=== PATIENT | female | born 1955 | race Asian ===

== ENCOUNTER 2017-03-17 10:25 | Outpatient (CLI) | payer OTHER ==
[~2017-03-17 10:25] MED LIST: AMLO2.5T PO; EDLUAR10 MG PO; FOLI1TAB26 PO; HYZAAR1 TA1 PO; METHO2.5 PO; PREDNISONE5 MG PO; TRAM50TA PO
== END 2017-03-17 11:30 | disposition home or self-care (01) ==
LOC: RAD 10:25
DX: M85.89 Other specified disorders of bone density and structure, multiple sites (principal); M05.89 Other rheumatoid arthritis with rheumatoid factor of multiple sites; K13.0 Diseases of lips; M19.041 Primary osteoarthritis, right hand; M19.042 Primary osteoarthritis, left hand; M19.071 Primary osteoarthritis, right ankle and foot

== ENCOUNTER 2017-06-08 10:14 | Outpatient (CLI) | payer OTHER | END 2017-06-08 11:15 | disposition home or self-care (01) | LOC: MAMMO 10:14 | DX: Z12.31 Encounter for screening mammogram for malignant neoplasm of breast (principal) ==

== ENCOUNTER 2017-08-19 10:08 | Outpatient (CLI) | payer OTHER | END 2017-08-19 19:34 | disposition home or self-care (01) | LOC: RESP 10:08 | DX: R06.02 Shortness of breath (principal) | CPT/HCPCS: 94640; 94664 ==

== ENCOUNTER 2018-06-11 14:10 | Outpatient (CLI) | payer OTHER | END 2018-06-11 22:20 | disposition home or self-care (01) | LOC: MAMMO 14:10 | DX: M05.89 Other rheumatoid arthritis with rheumatoid factor of multiple sites (principal); R06.00 Dyspnea, unspecified; Z12.31 Encounter for screening mammogram for malignant neoplasm of breast ==

== ENCOUNTER 2019-01-10 22:10 | Inpatient (IN) | payer OTHER ==
[~2019-01-10] VITALS: Ht 165.1 cm; Wt 88.5 kg
[2019-01-10 22:14] VITALS: BP 165/88; TEMP 98.1
[2019-01-10 22:39] VITALS: BP 155/78
[2019-01-10 22:55] VITALS: BP 132/73
[2019-01-10 23:30] VITALS: BP 135/77
[2019-01-10 23:40] LABS: POTASSIUM 3.5 mmol/L (3.6-5.2); SODIUM 134 mmol/L (136-145)
[2019-01-10 23:42] LABS: PLATELET COUNT 396 K/uL (152-353)
[2019-01-11] VITALS (9 sets, daily range): BP systolic 128–167; BP diastolic 76–90; TEMP 97.5–98.5; Ht 165.1 cm; Wt 88.5 kg
[2019-01-11] MEDS ORDERED: ATEN25TA21 PO (00:52)
[2019-01-11] MEDS ORDERED: NORCO 10/325***1 TAB PO (00:52)
[2019-01-11] MEDS ORDERED: ORENCIA50 MG/0.4 SC (00:54)
[2019-01-11] MEDS ORDERED: OTREXUP20 MG/0.4 SC (00:57)
[2019-01-11] MEDS ORDERED: ALBU90AE13 INH (00:58)
[2019-01-11] MEDS ORDERED: LANTUS100 UNIT/M SC (10:27)
[2019-01-11] MEDS ORDERED: JANUMET1 TAB PO (10:31)
[2019-01-11 14:12] LABS: POTASSIUM 4.1 mmol/L (3.6-5.2)
[2019-01-11 14:49] LABS: PLATELET COUNT 386 K/uL (152-353)
[2019-01-12] VITALS: BP 149/82; TEMP 98.2
[2019-01-12 03:56] VITALS: BP 133/77; TEMP 98.2
[2019-01-12 05:32] LABS: PLATELET COUNT 356 K/uL (152-353)
[2019-01-12 05:51] LABS: POTASSIUM 3.9 mmol/L (3.6-5.2)
[2019-01-12 08:00] VITALS: BP 155/82; TEMP 98.3
[2019-01-12 12:00] VITALS: BP 141/77; TEMP 98.3
[2019-01-12 16:00] VITALS: BP 143/81; TEMP 98.4
[2019-01-12 19:51] VITALS: BP 152/82; TEMP 98.5
[2019-01-13] VITALS: BP 140/67; TEMP 98.6
[2019-01-13 04:00] VITALS: BP 148/77; TEMP 98.4
[2019-01-13 06:22] LABS: PLATELET COUNT 344 K/uL (152-353)
[2019-01-13 06:41] LABS: POTASSIUM 4.4 mmol/L (3.6-5.2)
[2019-01-13 08:00] VITALS: BP 157/86; TEMP 98.6
[2019-01-13] MEDS ORDERED: ALBUTEROL0.083 % INH (10:23)
[2019-01-13] MEDS ORDERED: NEBULIZE1 INH (10:25)
[2019-01-13] MEDS ORDERED: MEDROL DOSEPAK4 MG PO (10:26)
[2019-01-13] MEDS ORDERED: MUCINEX600 MG PO (10:27)
== END 2019-01-13 11:08 | disposition home or self-care (01) | DRG 202 ==
LOC: ED 22:10 → MED/SURG 01-11 01:00
PROVIDERS: Family Medicine; ADMIT Emergency Medicine
DX: J45.901 Unspecified asthma with (acute) exacerbation (principal); E87.1 Hypo-osmolality and hyponatremia; D52.8 Other folate deficiency anemias; I10 Essential (primary) hypertension; E87.6 Hypokalemia; E11.9 Type 2 diabetes mellitus without complications; E83.42 Hypomagnesemia; G47.09 Other insomnia
CPT/HCPCS: 36415; 80053; 82550; 82948; 83735; 84484; 85027; 85379; 94640; 94644; 94645; 94664; 94760; 96365; 96366; 96372; 99284; J1650; J1815; J2930; J3475; J3490; J7040

== ENCOUNTER → 2019-02-28 | Emergency (ER) | payer OTHER ==
[~2019-02-28] MED LIST changes: +ALBU90AE13 INH; +ALBUTEROL0.083 % INH; +ATEN25TA21 PO; +JANUMET1 TAB PO; +LANTUS100 UNIT/M SC; +MEDROL DOSEPAK4 MG PO; +MUCINEX600 MG PO; +NEBULIZE1 INH; +NORCO 10/325***1 TAB PO; +ORENCIA50 MG/0.4 SC; +OTREXUP20 MG/0.4 SC
== END ==
LOC: ED 20:43
DX: H92.01 Otalgia, right ear (principal)

== ENCOUNTER 2019-06-06 12:45 | Outpatient (CLI) | payer OTHER | END 2019-06-06 20:14 | disposition home or self-care (01) | LOC: LABW 12:45 | DX: D33.3 Benign neoplasm of cranial nerves (principal) | CPT/HCPCS: 36415; 82565; 84520 ==

== ENCOUNTER 2019-08-11 10:57 | Outpatient (CLI) | payer OTHER | END 2019-08-11 19:14 | disposition home or self-care (01) | LOC: RAD 10:57 | DX: M05.89 Other rheumatoid arthritis with rheumatoid factor of multiple sites (principal); M19.041 Primary osteoarthritis, right hand; M19.042 Primary osteoarthritis, left hand; M19.071 Primary osteoarthritis, right ankle and foot; M19.072 Primary osteoarthritis, left ankle and foot ==

== ENCOUNTER 2019-08-23 09:33 | Outpatient (CLI) | payer OTHER | END 2019-08-23 20:18 | disposition home or self-care (01) | LOC: MAMMO 09:33 | DX: Z12.31 Encounter for screening mammogram for malignant neoplasm of breast (principal) ==

== ENCOUNTER 2020-02-15 11:11 | Outpatient (CLI) | payer OTHER | END 2020-02-15 20:06 | disposition home or self-care (01) | LOC: RAD 11:11 | DX: M79.641 Pain in right hand (principal); M79.672 Pain in left foot ==

== ENCOUNTER 2020-07-09 09:58 | Outpatient (CLI) | payer OTHER | END 2020-07-09 22:28 | disposition home or self-care (01) | LOC: MRI 09:58 | DX: M05.89 Other rheumatoid arthritis with rheumatoid factor of multiple sites (principal); M19.041 Primary osteoarthritis, right hand; M19.042 Primary osteoarthritis, left hand; M19.071 Primary osteoarthritis, right ankle and foot; M19.072 Primary osteoarthritis, left ankle and foot; Z79.899 Other long term (current) drug therapy ==

== ENCOUNTER 2021-01-17 13:13 | Outpatient (CLI) | payer OTHER | END 2021-01-17 20:37 | disposition home or self-care (01) | LOC: MRI 13:13 | PROVIDERS: ATTEND Nurse Practitioner Family | DX: M05.79 Rheumatoid arthritis with rheumatoid factor of multiple sites without organ or systems involvement (principal) ==

== ENCOUNTER 2021-02-26 08:16 | Outpatient (CLI) | payer OTHER | END 2021-02-26 22:39 | disposition home or self-care (01) | LOC: MRI 08:16 | PROVIDERS: ATTEND Nurse Practitioner Family | DX: M05.79 Rheumatoid arthritis with rheumatoid factor of multiple sites without organ or systems involvement (principal) | CPT/HCPCS: A9576 ==

== ENCOUNTER 2022-11-03 17:24 | Observation (INO) | payer OTHER ==
[~2022-11-03] VITALS: Ht 167.6 cm; Wt 96.7 kg
[2022-11-03 18:40] VITALS: BP 175/82; TEMP 98; Ht 167.6 cm; Wt 96.7 kg
[2022-11-03 19:38] VITALS: BP 168/85; TEMP 97.7
[2022-11-03 21:30] LABS: PLATELET COUNT 408 K/uL (152-353)
[2022-11-03 21:31] LABS: POTASSIUM 3.7 mmol/L (3.6-5.2)
[2022-11-03 23:36] VITALS: BP 167/73; TEMP 98.1
[2022-11-04 03:31] VITALS: BP 152/77; TEMP 98.1
[2022-11-04 08:00] VITALS: BP 153/85; TEMP 97.9
[2022-11-04 12:00] VITALS: BP 143/80; TEMP 97.5
== END 2022-11-04 16:35 | disposition home health service (06) ==
LOC: MED/SURG 17:24
PROVIDERS: ADMIT Internal Medicine; ATTEND Internal Medicine
DX: E11.621 Type 2 diabetes mellitus with foot ulcer (principal); R60.0 Localized edema; M06.8A Other specified rheumatoid arthritis, other specified site; I10 Essential (primary) hypertension
CPT/HCPCS: 80053; 82948; 83880; 85027; 87635; 96365; 96367; 96372; 96374; 96375; 96376; 99220; G0378; G0379; J0360; J1650; J1940; J3490; U0003

== ENCOUNTER 2022-12-24 15:46 | Outpatient (CLI) | payer OTHER | END 2022-12-24 18:00 | disposition home or self-care (01) | LOC: RAD 15:46 | PROVIDERS: ATTEND Nurse Practitioner Family | DX: S91.301D Unspecified open wound, right foot, subsequent encounter (principal); Y92.89 Other specified places as the place of occurrence of the external cause ==